=== PATIENT | male | born 1980 | race Two or more races ===

== ENCOUNTER 2025-04-08 10:27 | Inpatient (IN) | payer OTHER ==
[~2025-04-08] VITALS: Ht 180.3 cm; Wt 80.7 kg
[~2025-04-08 10:27] MED LIST: CEFADROXIL500 MG PO; HUMULIN N100 U/ML; HUMULIN N100 U/ML SQ; ULTRAM50 MG PO
[2025-04-08] MEDS ORDERED: ATORVASTATIN CA20 MG PO (11:16)
[2025-04-08] MEDS ORDERED: 0.9 % SODIUM CHLORIDE 1,000 ML IV STA (11:26)
[2025-04-08] MEDS ORDERED: INSULIN REGULAR, HUMAN 1,000 UNIT/10 ML UNITS IV ONE (11:30)
[2025-04-08 12:09] LABS: BASO % 0.3 % (0.1-1.2); EOS # 0.00 (0.04-0.54); EOS % 0.0 % (0.7-7.0); LYMPH # 0.64 (1.18-3.74); LYMPH % 4.0 % (19.3-53.1); MEAN PLATELET VOLUME 10.40 fl (9.4-12.4); MONO # 0.91 (0.24-0.82); MONO % 5.7 % (4.7-12.5); NEUT # 14.21 (1.56-6.13); NEUT % 89.6 % (34.0-71.1); RED CELL DISTRIBUTION WIDTH 12.5 % (11.6-14.4)
[2025-04-08 12:21] LABS: BUN CREA RATIO 19.0 (7.0-25.0); CREATININE SERUM 1.21 mg/dL (0.70-1.30); GFR 65.45
[2025-04-08 12:25] LABS: OSMOLALITY SERUM 296.0 MOSM/KG (275-295)
[2025-04-08 12:28] LABS: GLUCOSE FASTING 467.0 mg/dL (65-100)
[2025-04-08 12:39] LABS: ABG PH 7.273 (7.35-7.45); ABG PO2 107.4 mmHg (80-100); BICARBONATE 11.7 mmol/l (23-25); o2 21 %
[2025-04-08] MEDS ORDERED: SODIUM BICARBONATE 1 MEQ/ML DISP.SYRIN 50ML IV ONE (12:45)
[2025-04-08] MEDS ORDERED: INSULIN REGULAR, HUMAN 1,000 UNIT/10 ML UNITS IV SCH (13:15)
[2025-04-08 13:17] LABS: URINE APPEARANCE Clear; URINE BILIRRUBIN Negative (NEGATIVE); URINE BLOOD Negative; URINE COLOR Yellow; URINE LEUKOCYTE Negative; URINE NITRATE Negative; URINE PROTEIN Negative (NEGATIVE); URINE UROBILINOGEN 0.2 E.U./dl
[2025-04-08 13:56] LABS: URINE BACTERIA 3.5 uL (0.0-1933); URINE CAST 0.14 uL (0.0-1.40); URINE EPITHELIAL CELLS 0.7 uL (0.0-38.8); URINE GLUCOSE >=1000 MG/DL (NEGATIVE); URINE KETONE >=160 (NEGATIVE); URINE RBC 0.4 uL (0.0-20.8); URINE WBC 0.9 uL (0.0-23.2)
[2025-04-08] MEDS ORDERED: SODIUM CHLORIDE 0.45 % 1,000 ML IV SCH (20:45)
[2025-04-08] MEDS ORDERED: INSULIN REGULAR, HUMAN 100 UNITS in 0.9 % SODIUM CHLORIDE 100 ML IV SCH (20:45)
[2025-04-08] MEDS ORDERED: FAMOTIDINE/PF 20 MG in 0.9 % SODIUM CHLORIDE 8 ML IV PUSH SCH (20:50)
[2025-04-08] MEDS ORDERED: ONDANSETRON HCL 4 MG in 0.9 % SODIUM CHLORIDE 50 ML IV PRN (21:00)
[2025-04-08 22:17] VITALS: BP 128/65; O2SAT 100
[2025-04-08 23:50] VITALS: BP 120/60; O2SAT 99
[2025-04-09] MEDS ORDERED: DEXTROSE 5 % IN WATER 500 ML IV SCH (00:30)
[2025-04-09 04:11] VITALS: BP 136/71; O2SAT 100
[2025-04-09 07:33] LABS: ALT/SGPT 34.0 U/L (12-78); AST/SGOT 18.0 U/L (15-37); BILIRUBIN TOTAL 0.85 mg/dL (0.3-1.2); BUN CREA RATIO 18.0 (7.0-25.0); CREATININE SERUM 0.85 mg/dL (0.70-1.30); GFR 98.38; GLOBULINA 2.5 G/DL (2.4-3.5); GLUCOSE FASTING 220.0 mg/dL (65-100); OSMOLALITY SERUM 285.0 MOSM/KG (275-295)
[2025-04-09 08:00] VITALS: BP 125/79; O2SAT 98
[2025-04-09] MEDS ORDERED: INSULIN REGULAR, HUMAN 100 UNITS in 0.9 % SODIUM CHLORIDE 100 ML IV SCH (09:00)
[2025-04-09 09:43] LABS: ABG PH 7.408 (7.35-7.45); ABG PO2 87.2 mmHg (80-100)
[2025-04-09 09:44] LABS: BICARBONATE 26.3 mmol/l (23-25)
[2025-04-09 09:45] LABS: o2 21 %
[2025-04-09] MEDS ORDERED: INSULIN NPH HUMAN ISOPHANE 1,000 UNITS/10 ML UNITS SUBCUTANEO NR (09:45)
[2025-04-09] MEDS ORDERED: INSULIN LISPRO 1,000 UNIT/10 ML UNITS SUBCUTANEO NR (09:45)
[2025-04-09] MEDS ORDERED: PANTOPRAZOLE SODIUM 40 MG TABLET.DR PO SCH (10:11)
[2025-04-09 12:22] VITALS: BP 122/70; O2SAT 100
[2025-04-09 12:25] LABS: BASO % 0.3 % (0.1-1.2); EOS # 0.05 (0.04-0.54); EOS % 0.4 % (0.7-7.0); LYMPH # 1.92 (1.18-3.74); LYMPH % 16.3 % (19.3-53.1); MEAN PLATELET VOLUME 9.80 fl (9.4-12.4); MONO # 0.66 (0.24-0.82); MONO % 5.6 % (4.7-12.5); NEUT # 9.06 (1.56-6.13); NEUT % 77.1 % (34.0-71.1); RED CELL DISTRIBUTION WIDTH 12.4 % (11.6-14.4)
[2025-04-09 15:22] VITALS: BP 115/68; O2SAT 100
== END 2025-04-09 15:35 | disposition left against medical advice (07) | DRG 639 ==
LOC: ER 10:27 → ICU-2 20:44 → ICU 23:20
PROVIDERS: Emergency Medicine; General Practice; ADMIT Internal Medicine; ATTEND Internal Medicine
DX: E10.10 Type 1 diabetes mellitus with ketoacidosis without coma (principal); Z79.4 Long term (current) use of insulin; Z96.41 Presence of insulin pump (external) (internal); Z53.29 Procedure and treatment not carried out because of patient's decision for other reasons